=== PATIENT | female | born 1985 | race Hispanic/Latino ===

== ENCOUNTER 2019-06-08 04:51 | Inpatient (IN) ==
[2019-06-08] MEDS ORDERED: ceFAZolin SODIUM/DEXTROSE,ISO 2 GM/50 ML BAG IV ONE (05:07)
[2019-06-08] MEDS ORDERED: OXYTOCIN 20 UNITS in RINGER'S SOLUTION,LACTATED 1,000 ML IV ONE ×2 (05:07→09:06)
[2019-06-08] MEDS ORDERED: RINGER'S SOLUTION,LACTATED 1,000 ML IV PRN ×2 (05:07)
[2019-06-08 06:21] LABS: Cocaine Ur Negative (NEGATIVE); Urine Barbiturate Negative (NEGATIVE); Urine Benzodiazepines Negative (NEGATIVE); Urine Opiates Negative (NEGATIVE); Urine PCP Negative (NEGATIVE); Urine THC Negative (NEGATIVE)
--- NOTE | 2019-06-08 07:10 | ANES ---
Anesthesia Pre Procedure Eval Vitals/Labs: Last Vital Signs Temp 36.4 C 06/08/19 05:57 Pulse 82 06/08/19 05:57 Resp 16 06/08/19 05:57 BP 120/56 06/08/19 05:57 Pulse Ox 100 06/08/19 05:57 HOME MEDICATIONS vitamin,calcium,cwwdhnhx-[id number] acid tablet 1 tab PO DAILY 11/07/18 [Last Taken 05/13/19] Allergies/Adverse Reactions: Allergies Allergy/AdvReac Type Severity Reaction Status Date / Time No Known Allergies Allergy Verified 06/08/19 05:08 - Planned Procedure Planned Procedure: Repeat Section Medication List Reviewed:: Yes Allergies Verified: Yes Medical History (Updated 06/07/19 @ 16:19 by Leela Holly MD) Asthma Hx of gallstones Hemorrhage Onset Date: ~2009 during vaginal delivery Surgical History (Updated 04/06/19 @ 19:27 by Leela Holly MD) History of section, classical 09-19-08 Hx of esophagogastroduodenoscopy Family History (Updated 11/07/18 @ 13:14 by Jaleel Presley RN) Father No problems noted. Mother Heart disease Hypertension Diabetes Other Asthma Hx of diabetes mellitus - Family Anesthesia History Family History:: no untoward family reactions to anesthesia - Airway/Neck/Teeth Within Normal Limits:: Yes Teeth Condition: intact Neck Exam: full range of motion Mallampatti Score: 1 Thyromental (T-M) distance: > 6 cm Mandibulo Hyoid distance: > 3 cm - Respiratory Respiratory History: asthma Smoking Status: Former smoker Sleep Apnea currently treated: No Sleep Apnea by current assessment: No - Cardiovascular Tolerate Activity: Good Heart Sounds: S1 & S2, Regular - Anesthesia Assessment and Plan ASA Class: PS, II Anesthesia Type Plan: Spinal - Bilat TAP block for postop analgesia
--- NOTE | 2019-06-08 09:03 | OR ---
Operative Report - Dictated Report Narrative: Date of delivery: 06/08/2019 Time of delivery: 800 Gender: male weight: 3279 grams APGARS: 05/21 Preoperative diagnosis: IUP @ 39w 0d, history of delivery x1, history of trichomonal vaginitis this , anti-c (last titer is 1) Postoperative diagnosis: same as above, loose nuchal cord Procedure: repeat delivery Surgeon: Dr. Holly Anesthesia: spinal Anesthesiologist: Pablo Elias CRNA Description of the procedure: The patient was taken to the operating room where spinal anesthesia was induced. She was then prepped and draped in the supine position in the standard surgical fashion. A time out was performed. The patient was tested to ensure adequate anesthesia. A Pfannestiel skin incision was made following the patient's old incision. The incision was carried through the subcutaneous tissue. The fascia was incised in the midline. The fascia was tented up with Constance clamps and dissected off the underlying rectus muscles. An incisional hernia was noted of the omentum coming through the rectus muscles superiorly. The rectus muscles were in the midline. The peritoneum was entered bluntly. A large Jefferson retractor was placed in the abdomen. The uterus was incised in a low transverse fashion. The membranes ruptured and clear fluid was noted. The uterine incision was closed with a layer of 0-vicryl in a running locking fashion. An additional figure of eight suture was placed near the left corner of the incision for additional hemostasis. The uterine incision was inspected and appeared hemostatic. The Jefferson retractor was removed from the abdomen. The uterine incision was reinspected and appeared hemostatic. The fascia was closed with 1-0 vicryl. The subcutaneous tissue was copiously irrigated. The skin incision was closed with 3-0 monocryl on a Lionel needle. [place] georges was placed over the incision. All sponge, lap, and needle counts were correct. The patient tolerated the procedure well. She was transferred to the recovery room in stable condition. EBL: 500 mL Complications: none Specimens: none History for MU Definition: * The number of deliveries resulting in a live the patient experienced prior to current hospitalization * The previous delivery of live twins or any live multiple gestation is considered one live event. *If primagravida or nulliparous is documented select zero for the number of previous live births. Live Events: 6
[2019-06-08] MEDS ORDERED: SENNOSIDES 8.6 MG TABLET PO PRN (09:06)
[2019-06-08] MEDS ORDERED: BISACODYL 10 MG SUPP.RECT RC PRN (09:06)
[2019-06-08] MEDS ORDERED: ONDANSETRON HCL/PF 2 MG/ML VIAL IV PRN (09:06)
[2019-06-08] MEDS ORDERED: RINGER'S SOLUTION,LACTATED 1,000 ML IV ONE (09:06)
[2019-06-08] MEDS ORDERED: KETOROLAC TROMETHAMINE 30 MG/ML VIAL IV PRN (09:06)
[2019-06-08] MEDS ORDERED: diphenhydrAMINE HCL 25 MG CAPSULE PO PRN (09:06)
--- NOTE | 2019-06-08 09:13 | ANES ---
Post Anesthesia Discharge - Transfer of Care Transfer of Care handoff given to nurse: Yes - Discharge from PACU Discharge from PACU when meets criteria: Yes
--- NOTE | 2019-06-08 09:16 | ANES ---
Anesthesia Procedure Note Procedure Note: ANESTHESIA PROCEDURE NOTE Date of procedure: 06/08/2019. Time of procedure: 45. Performed by: Pablo Elias CRNA Generator Switchboard Operator: Ayala Marquis RN . Preprocedure diagnosis: Previous . Post procedure diagnosis: Same. Procedure: Ultrasound-guided bilateral tap block Indications: Postoperative analgesia. Findings: Patient brought to the PACU and placed in a supine position. Her right abdominal wall was prepped with ChloraPrep. Ultrasound was utilized to identify the fascial layer between the trans-abdominus and internal oblique muscles. A 20-gauge 4 inch regional block needle was advanced under ultrasound guidance till tip of needle was positioned just posterior to fascial layer. 20 mL of 0.25% Marcaine with epinephrine 1 200,000 was injected with adequate spread of local anesthesia noted. Procedure was then repeated on patient's left side. Regional block needle was removed intact. EBL: Minimal. Fluids: N/A. Specimen: N/A. Post procedure condition: The patient tolerated the procedure well. No complications were noted. Thank you for this consultation Pablo Elias CRNA
[2019-06-08] MEDS: HYDROcodone/ACETAMINOPHEN 1 EACH TABLET PO PRN ×3 (09:41→19:29)
[2019-06-08] MEDS: IBUPROFEN 800 MG TABLET PO PRN (09:41)
--- NOTE | 2019-06-08 09:45 | ANES ---
Post Anesthesia Assessment - Vital Signs Vitals: Last Vital Signs Temp 36.3 C 06/08/19 09:10 Pulse 84 06/08/19 09:10 Resp 16 06/08/19 09:10 BP 122/41 06/08/19 09:10 Pulse Ox 100 06/08/19 09:10 Airway Patency: Normal - Mental Status Level Of Consciousness: Awake - Pain Level Pain Score: 2 - N/V Assessment Nausea/Vomiting Presence: None Dehydration:: No
[2019-06-08] MEDS: DOCUSATE SODIUM 100 MG CAPSULE PO SCH (20:39)
[2019-06-08] MEDS: SIMETHICONE 80 MG TAB.CHEW PO PRN (23:11)
[2019-06-09] MEDS: HYDROcodone/ACETAMINOPHEN 1 EACH TABLET PO PRN ×5 (04:38→22:23)
[2019-06-09] MEDS: IBUPROFEN 800 MG TABLET PO PRN ×2 (09:40→19:36)
[2019-06-09] MEDS: DOCUSATE SODIUM 100 MG CAPSULE PO SCH ×2 (09:41→21:18)
--- NOTE | 2019-06-09 11:57 | PN ---
Subjective - Date and Time Seen Date: 06/09/19 Time: 11:55 Subjective Narrative: The patient reports shoulder pain Objective Objective Narrative: See vital signs - Review of Systems Generalized/Overall Review: Reports: No Symptoms Reported Misc: All systems neg except as marked - Vitals Vitals: Last Vital Signs Temp 36.8 C 06/08/19 23:10 Pulse 87 06/08/19 23:10 Resp 18 06/08/19 23:10 BP 113/52 06/08/19 23:10 Pulse Ox 100 06/08/19 23:10 - Exam Constitutional: Present: Alert, Oriented x3, Cooperative, No distress Abdomen: Present: soft, nontender, nondistended - incision c/d/i Extremity: Present: non-tender, no calf tenderness Skin Exam: Present: normal color, warm/dry, no cyanosis Appearance: Present: appropriate appearance Eye contact: Present: cooperative Thoughts: Present: normal thought pattern Cauti Physician Documentation - Urinary Catheter Management Urethral (Becerril) Urethral Indwelling: No Date of Insertion: 06/08/19 Time of Insertion: 07:43 Date of Removal: 06/08/19 Time of Removal: 20:30 Assessment/Plan Plan Narrative: POD 1 s/p repeat delivery Doing well Discharge POD 3 - Problems/Diagnosis (1) History of delivery Problem: Acute (2) History of trichomonal vaginitis Problem: Acute (3) 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
[2019-06-09] MEDS: SIMETHICONE 80 MG TAB.CHEW PO PRN (21:20)
[2019-06-10] MEDS: IBUPROFEN 800 MG TABLET PO PRN ×3 (01:39→18:11)
[2019-06-10] MEDS: HYDROcodone/ACETAMINOPHEN 1 EACH TABLET PO PRN ×5 (01:39→21:28)
--- NOTE | 2019-06-10 08:37 | PN ---
Subjective - Date and Time Seen Date: 06/10/19 Time: 08:34 Subjective Narrative: The patient reports shoulder pain Objective Objective Narrative: See vital signs - Review of Systems Generalized/Overall Review: Reports: No Symptoms Reported Misc: All systems neg except as marked - Vitals Vitals: Last Vital Signs Temp 36.6 C 06/09/19 22:20 Pulse 79 06/09/19 22:20 Resp 16 06/09/19 22:20 BP 106/50 06/09/19 22:20 Pulse Ox 97 06/09/19 22:20 - Exam Constitutional: Present: Alert, Oriented x3, Cooperative, No distress Abdomen: Present: soft, nontender, nondistended - incision c/d/i Extremity: Present: non-tender, no calf tenderness Skin Exam: Present: normal color, warm/dry, no cyanosis Appearance: Present: appropriate appearance Eye contact: Present: cooperative Thoughts: Present: normal thought pattern Cauti Physician Documentation - Urinary Catheter Management Urethral (Becerril) Urethral Indwelling: No Date of Insertion: 06/08/19 Time of Insertion: 07:43 Date of Removal: 06/08/19 Time of Removal: 20:30 Assessment/Plan Plan Narrative: POD 2 s/p repeat delivery Doing well Discharge tomorrow - Problems/Diagnosis (1) History of delivery Problem: Acute (2) History of trichomonal vaginitis Problem: Acute (3) 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
[2019-06-10] MEDS: DOCUSATE SODIUM 100 MG CAPSULE PO SCH ×2 (09:37→21:28)
[2019-06-11] MEDS: HYDROcodone/ACETAMINOPHEN 1 EACH TABLET PO PRN ×2 (00:55→07:57)
[2019-06-11] MEDS: IBUPROFEN 800 MG TABLET PO PRN ×2 (00:56→07:57)
[2019-06-11] MEDS ORDERED: MEDROXYPROGESTERONE ACET 150 MG/ML SYRG IM ONE ×2 (07:56→14:30)
--- NOTE | 2019-06-11 07:56 | PN ---
Subjective - Date and Time Seen Date: 06/11/19 Time: 07:55 Subjective Narrative: The patient reports shoulder pain Objective Objective Narrative: See vital signs - Review of Systems Generalized/Overall Review: Reports: No Symptoms Reported Misc: All systems neg except as marked - Vitals Vitals: Last Vital Signs Temp 36.9 C 06/10/19 18:50 Pulse 68 06/10/19 18:50 Resp 14 06/10/19 18:50 BP 96/41 06/10/19 18:50 Pulse Ox 98 06/10/19 18:50 - Exam Constitutional: Present: Alert, Oriented x3, Cooperative, No distress Abdomen: Present: soft, nontender, nondistended - incision c/d/i Extremity: Present: non-tender, no calf tenderness Skin Exam: Present: normal color, warm/dry, no cyanosis Appearance: Present: appropriate appearance Eye contact: Present: cooperative Thoughts: Present: normal thought pattern Cauti Physician Documentation - Urinary Catheter Management Urethral (Becerril) Urethral Indwelling: No Date of Insertion: 06/08/19 Time of Insertion: 07:43 Date of Removal: 06/08/19 Time of Removal: 20:30 Assessment/Plan Plan Narrative: POD 3 s/p repeat delivery Doing well Desires Depo-Provera for contraception Discharge today Follow-up in 2 weeks - Problems/Diagnosis (1) History of delivery Problem: Acute (2) History of trichomonal vaginitis Problem: Acute (3) 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
[2019-06-11] MEDS: DOCUSATE SODIUM 100 MG CAPSULE PO SCH ×2 (07:58→11:59)
[2019-06-11 08:10] VITALS: BP 105/46
== END 2019-06-11 15:30 | disposition home or self-care (01) | DRG 787 ==
LOC: MS 04:51
PROVIDERS: ADMIT Obstetrics & Gynecology; ATTEND Obstetrics & Gynecology
CPT/HCPCS: 59025; 80307; 86850; 86870; 86886

== ENCOUNTER 2021-02-27 00:12 | Inpatient (IN) ==
[2021-02-27] MEDS: RINGER'S SOLUTION,LACTATED 1,000 ML IV PRN ×2 (01:00→03:02)
[2021-02-27] MEDS ORDERED: AZITHROMYCIN 500 MG in DEXTROSE 5 % IN WATER 250 ML IV ONE ×2 (02:45)
[2021-02-27] MEDS ORDERED: RINGER'S SOLUTION,LACTATED 1,000 ML IV PRN (02:46)
[2021-02-27 03:15] LABS: Cocaine Ur Negative (NEGATIVE); Urine Barbiturate Negative (NEGATIVE); Urine Benzodiazepines Negative (NEGATIVE); Urine Opiates Negative (NEGATIVE); Urine PCP Negative (NEGATIVE)
[2021-02-27 03:17] LABS: Urine THC Positive (NEGATIVE)
--- NOTE | 2021-02-27 03:27 | PN ---
Progess Note - Interim Date: 02/27/21 Time: 03:24 Narrative: 02/27/21 03:24 The patient had a delivery scheduled for Tuesday but she is in labor so will proceed with delivery and salpingectomies. Zithromax 500 mg IV to be infused over an hour due to unscheduled delivery. Ancef to be administered as well. All risks, benefits, and alternatives of the procedure were again reviewed with the patient.
--- NOTE | 2021-02-27 03:51 | ANES ---
Anesthesia Pre Procedure Eval Vitals/Labs: Last Vital Signs Temp 36.5 C 02/27/21 00:29 Pulse 77 02/27/21 00:29 Resp 16 02/27/21 00:29 BP 111/56 02/27/21 00:29 Pulse Ox 99 02/27/21 00:29 HOME MEDICATIONS ascorbic acid (vitamin C) 500 mg tablet 500 mg PO DAILY 01/01/21 [Last Taken 02/26/21] ferrous sulfate 325 mg (65 mg iron) tablet 325 mg PO BID 01/01/21 [Last Taken 02/26/21] Ondansetron [Zofran Odt] 4 mg PO Q6H PRN #10 tab 01/23/21 [Last Taken 02/26/21] Vits96/Iron Fum/Folic [ S] 1 tab PO DAILY 01/23/21 [Last Taken 02/26/21] Allergies/Adverse Reactions: Allergies Allergy/AdvReac Type Severity Reaction Status Date / Time No Known Allergies Allergy Verified 02/23/21 12:32 - Planned Procedure Planned Procedure: C/S Medication List Reviewed:: Yes Allergies Verified: Yes Medical History (Last Reviewed 02/27/21 @ 03:45 by Buck Saeed CRNA) Anxiety Delivery with history of Asthma Hemorrhage Onset Date: ~2009 during vaginal delivery Hx of gallstones Surgical History (Last Reviewed 02/27/21 @ 03:45 by Buck Saeed CRNA) Hx of esophagogastroduodenoscopy Family History (Last Reviewed 02/27/21 @ 03:45 by Buck Saeed CRNA) Father No problems noted. Mother Heart disease Hypertension Diabetes Other Asthma Hx of diabetes mellitus - Family Anesthesia History Family History:: no untoward family reactions to anesthesia, no familial bleeding tendencies, no family history of clotting disorders, no family history of premature - Airway/Neck/Teeth Within Normal Limits:: Yes Teeth Condition: intact Mallampatti Score: 2 Thyromental (T-M) distance: > 6 cm Mandibulo Hyoid distance: > 3 cm - Respiratory Respiratory History: asthma Respiratory Physical: lungs clear - Cardiovascular Tolerate Activity: Good Heart Sounds: S1 & S2, Regular - Gastrointestinal NPO since: 8pm - Anesthesia Assessment and Plan ASA Class: PS, II, E Anesthesia Type Plan: Epidural
--- NOTE | 2021-02-27 06:39 | ANES ---
Post Anesthesia Discharge - Transfer of Care Transfer of Care handoff given to nurse: Yes - Discharge from PACU Discharge from PACU when meets criteria: Yes - Discharge to ASU Discharge to ASU-no complications/pt stable: Yes
--- NOTE | 2021-02-27 06:54 | OR ---
Operative Report - Dictated Report Narrative: Date of delivery: 02/27/2021 Time of delivery: 531 Gender: male weight: 3270 grams APGARS: 9 Preoperative diagnosis: IUP at 38w 4d, labor, history of delivery x2, marijuana use, Anti-c (last titer 2), history of UTI, desires sterilization Postoperative diagnosis: same, dense adhesions of the fascia to the rectus muscles superiorly and inferiorly Procedure: Abdominal scar revision (12 cm), repeat delivery, bilateral salpingectomies Surgeon: Dr. Holly Anesthesia: Spinal Anesthesiologist: Buck Saeed CRNA Description of the procedure: The patient was taken to the operating room where she underwent spinal anesthesia. She was then prepped and draped in the lithotomy position in the standard surgical fashion. Attention was then turned to the abdomen. An elliptical incision was made around the two prior incisions and a scar revision was performed in the usual fashion. The incision was carried through the subcutaneous tissue. The fascia was incised in the midline. The fascia was densely adherent to the rectus muscle both super iorly and inferiorly. The fascial incision was extended bilaterally. The fascia was grasped with Constance clamps and dissected off the underlying rectus muscle. The fascia was densely adherent so care was taken to identify bowel and bladder at all times. The peritoneum was entered sharply with good visualization of the bowel superiorly and the bladder inferiorly. The peritoneal incision was extended bluntly. A large Jefferson retractor was placed in the abdomen. The lower uterine segment was incised in a low transverse fashion. The lower uterine segment was thin. The uterine incision was extended bluntly. The membranes were ruptured and a large amount of clear fluid was noted. The head was brought out through the incision. The shoulders delivered without difficulty followed by the rest of the infant. A loose nuchal cord was reduced after delivery. The cord was clamped and cut. Cord blood was collected. The placenta was delivered by expression, intact, and with minimal difficulty. The placenta was slightly adherent in the midline anterior uterine wall but there was no evidence of placental attachment or accretta. The uterine incision was closed with 2 layers of 0-vicryl. Additional hemostasis was obtained with a [id number] suture in the middle of the incision. The right fallopian tube was identified, cut along the mesosalpinx to the cornual region. Hemostasis was adequate. The right ovary appeared normal. The same procedure was repeated on the left. The left ovary appeared normal. Hemostasis was adequate. The subfascial tissues were made hemostatic. There was bleeding superiorly at the junction of the fascia and rectus muscles and 2-0 vicryl sutures were placed in this area for hemostasis. Hemostasis was adequate. The fascia was closed with 0-vicryl. The subcutaneous tissue was made hemostatic. The skin incision was closed with 3-0 monocryl on a Lionel needle. [place] georges was placed over the incision. The incision was covered with a pressure dressing. All sponge, lap, and needle counts were correct. The patient tolerated the procedure well. She was transferred to the recovery room in stable condition. EBL: 1000 mL Complications: none Specimens: cord blood, placenta History for MU Definition: * The number of deliveries resulting in a live the patient experienced prior to current hospitalization * The previous delivery of live twins or any live multiple gestation is considered one live event. *If primagravida or nulliparous is documented select zero for the number of previous live births. Live Events: 7
[2021-02-27] MEDS ORDERED: HYDROmorphone HCL 2 MG/ML VIAL IV ONE (06:57)
[2021-02-27] MEDS ORDERED: KETOROLAC TROMETHAMINE 30 MG/ML VIAL IV PRN (07:13)
[2021-02-27] MEDS ORDERED: diphenhydrAMINE HCL 25 MG CAPSULE PO PRN (07:13)
[2021-02-27] MEDS ORDERED: SIMETHICONE 80 MG TAB.CHEW PO PRN (07:13)
[2021-02-27] MEDS ORDERED: SENNOSIDES 8.6 MG TABLET PO PRN (07:13)
[2021-02-27] MEDS ORDERED: ONDANSETRON HCL/PF 2 MG/ML VIAL IV PRN (07:13)
[2021-02-27] MEDS ORDERED: BISACODYL 10 MG SUPP.RECT RC PRN (07:13)
[2021-02-27] MEDS ORDERED: HYDROcodone/ACETAMINOPHEN 1 EACH TABLET PO PRN (07:13)
--- NOTE | 2021-02-27 07:18 | ANES ---
Post Anesthesia Assessment - Vital Signs Vitals: Last Vital Signs Temp 35.5 C L 02/27/21 07:14 Pulse 62 02/27/21 07:14 Resp 16 02/27/21 07:14 BP 112/52 02/27/21 07:14 Pulse Ox 100 02/27/21 07:14 Airway Patency: Normal - Mental Status Level Of Consciousness: Awake - Pain Level Pain Score: 5 - N/V Assessment Nausea/Vomiting Presence: None Dehydration:: No
[2021-02-27] MEDS: DOCUSATE SODIUM 100 MG CAPSULE PO SCH ×2 (09:28→20:50)
[2021-02-27] MEDS: IBUPROFEN 800 MG TABLET PO PRN (15:18)
[2021-02-27] MEDS: HYDROcodone/ACETAMINOPHEN 1 EACH TABLET PO PRN ×2 (15:18→20:50)
[2021-02-28] MEDS: HYDROcodone/ACETAMINOPHEN 1 EACH TABLET PO PRN ×4 (00:09→19:10)
[2021-02-28] MEDS: IBUPROFEN 800 MG TABLET PO PRN ×4 (00:10→19:17)
[2021-02-28] MEDS ORDERED: ceFAZolin SODIUM 1 GM VIAL IV PRN (06:00)
[2021-02-28] MEDS: DOCUSATE SODIUM 100 MG CAPSULE PO SCH ×2 (10:15→20:52)
--- NOTE | 2021-02-28 11:02 | PN ---
Subjective - Date and Time Seen Date: 02/28/21 Time: 11:00 Subjective Narrative: Patient without complaints Objective Objective Narrative: See vital signs - Review of Systems Generalized/Overall Review: Reports: No Symptoms Reported Misc: All systems neg except as marked - Vitals Vitals: Last Vital Signs Temp 36.0 C 02/28/21 08:21 Pulse 54 L 02/28/21 08:21 Resp 16 02/28/21 08:21 BP 107/57 02/28/21 08:21 Pulse Ox 98 02/28/21 08:21 - Exam Constitutional: Present: Alert, Oriented x3, Cooperative, No distress ENT Exam: Present: hearing grossly normal Neck: Present: normal inspection Abdomen: Present: soft, nontender, nondistended - incision c/d/i Extremity: Present: non-tender, no calf tenderness Skin Exam: Present: normal color, warm/dry, no cyanosis Neurologic: Present: alert, normal mood/affect, oriented x 3 Appearance: Present: appropriate appearance, appropriate insight, neat, no memory impairment Eye contact: Present: cooperative, good eye contact, normal speech Thoughts: Present: normal thought pattern Cauti Physician Documentation - Urinary Catheter Management Urethral (Becerril) Urethral Indwelling: No Date of Insertion: 02/27/21 Time of Insertion: 05:10 Date of Removal: 02/27/21 Time of Removal: 19:00 Assessment/Plan Plan Narrative: POD 1 s/p repeat delivery, salpingectomies Doing well Discharge POD 3
[2021-03-01] MEDS: HYDROcodone/ACETAMINOPHEN 1 EACH TABLET PO PRN ×3 (01:00→18:00)
[2021-03-01] MEDS: IBUPROFEN 800 MG TABLET PO PRN ×3 (01:28→18:01)
[2021-03-01] MEDS: DOCUSATE SODIUM 100 MG CAPSULE PO SCH ×2 (08:41→21:45)
--- NOTE | 2021-03-01 09:41 | PN ---
Subjective - Date and Time Seen Date: 03/01/21 Time: 09:39 Subjective Narrative: Patient without complaints Objective Objective Narrative: See vital signs - Review of Systems Generalized/Overall Review: Reports: No Symptoms Reported Misc: All systems neg except as marked - Vitals Vitals: Last Vital Signs Temp 36.3 C 03/01/21 07:19 Pulse 63 03/01/21 07:19 Resp 16 03/01/21 07:19 BP 101/65 03/01/21 07:19 Pulse Ox 100 03/01/21 07:19 - Exam Constitutional: Present: Alert, Oriented x3, Cooperative, No distress ENT Exam: Present: hearing grossly normal Abdomen: Present: soft, nontender, nondistended Skin Exam: Present: normal color, warm/dry, no cyanosis Neurologic: Present: alert, normal mood/affect, oriented x 3 Appearance: Present: appropriate appearance, appropriate insight, neat, no memory impairment Eye contact: Present: cooperative, good eye contact, normal speech Thoughts: Present: normal thought pattern Cauti Physician Documentation - Urinary Catheter Management Urethral (Becerril) Urethral Indwelling: No Date of Insertion: 02/27/21 Time of Insertion: 05:10 Date of Removal: 02/27/21 Time of Removal: 19:00 Assessment/Plan Plan Narrative: POD 2 s/p repeat deliveries, salpingectomies Doing well Discharge tomorrow
[2021-03-02] MEDS: HYDROcodone/ACETAMINOPHEN 1 EACH TABLET PO PRN (00:37)
[2021-03-02] MEDS: IBUPROFEN 800 MG TABLET PO PRN (00:37)
--- NOTE | 2021-03-02 07:40 | PN ---
Subjective - Date and Time Seen Date: 03/02/21 Time: 07:39 Subjective Narrative: Patient without complaints Objective Objective Narrative: See vital signs - Review of Systems Generalized/Overall Review: Reports: No Symptoms Reported Misc: All systems neg except as marked - Vitals Vitals: Last Vital Signs Temp 36.4 C 03/02/21 00:38 Pulse 68 03/02/21 00:38 Resp 18 03/02/21 00:38 BP 104/24 03/02/21 00:38 Pulse Ox 100 03/02/21 00:38 - Exam Constitutional: Present: Alert, Oriented x3, Cooperative, No distress ENT Exam: Present: hearing grossly normal Neck: Present: normal inspection Abdomen: Present: soft, nontender, nondistended - incision c/d/i Extremity: Present: non-tender, no calf tenderness Skin Exam: Present: normal color, warm/dry, no cyanosis Neurologic: Present: alert, normal mood/affect, oriented x 3 Appearance: Present: appropriate appearance, appropriate insight, neat, no memory impairment Eye contact: Present: cooperative, good eye contact, normal speech Thoughts: Present: normal thought pattern Cauti Physician Documentation - Urinary Catheter Management Urethral (Becerril) Urethral Indwelling: No Date of Insertion: 02/27/21 Time of Insertion: 05:10 Date of Removal: 02/27/21 Time of Removal: 19:00 Assessment/Plan Plan Narrative: POD 3 s/p repeat delivery, salpingectomies Doing well Discharge today
--- NOTE | 2021-03-02 07:43 | DS ---
OB Discharge Summary Delivery Date: 02/27/21 Delivery Time: 05:32 :: 8 Para:: 8 Gestational weeks:: 38 Gestational days:: 4 Intrapartum Procedures: Secondary Section, Delivery-Low Transverse, Anesthesia - Spinal Procedures: None /OP Complications: No Complications Discharge Diagnosis: Term -Delivered - Discharge Information Date of Discharge: 03/02/21 Hospital Course: The patient presented to labor and delivery in labor at 38w 4d and thus she underwent a repeat delivery and salpingectomies. Delivery and course were uncomplicated. Discharge Location: Home Disposition: Home self-care Condition: Good Activity on Discharge:: Activity as tolerated, Pelvic Rest Discharge Diet: General/regular food Additional Patient Instructions (free text): Kathy, your follow up appointment is scheduled for William's follow up appointment is on 03/03/21 at 12:45 PM with . His blood type is O+. Discharge weight is 7lbs 0.6oz. Continue to bottle feed him every 3-[address] him on his back to sleep. In his own bassinet or crib. No loose blankets, bumper pads, pillows, or stuffed animals. Thank you for choosing [facility]. If you have any questions or concerns please don't hesitate to call us at [phone]; [facility] [phone]; [facility] [phone]. Prescriptions (Any new or edited meds): HYDROcodone/ACETAMINOPHEN [[place] 5-325] 1 ea PO Q6H PRN #14 tab PRN Reason: Moderate Pain (Pain Scale 4-6) Transmission Status: Received by [facility] #[id number] Complete Home Medications List: Complete Home Medication List: HYDROcodone/ACETAMINOPHEN [[place] 5-325] 1 ea PO Q6H PRN #14 tab 02/28/21 - Plan Discharge to:: Home Comment:: Routine Discharge Instructions Follow up in office in:: Other - 4 weeks - Information Weight (Grams): 3,270 Sex: Male Score 1 min: 9 Score 5 min: 9 Complications: None
[2021-03-02] MEDS: DOCUSATE SODIUM 100 MG CAPSULE PO SCH (09:30)
[2021-03-02 09:48] VITALS: BP 88/45
== END 2021-03-02 11:00 | disposition home or self-care (01) | DRG 784 ==
LOC: OBCLINIC 00:12 → OB 02:34
PROVIDERS: ADMIT Obstetrics & Gynecology; ATTEND Obstetrics & Gynecology